=== PATIENT | female | born 1985 | race Caucasian/White ===

== ENCOUNTER → 2021-04-21 | Outpatient (CLI) | payer MEDICAID ==
[~2021-04-21] MED LIST: PREN-88 PO
== END | disposition home or self-care (01) ==
LOC: RAD 14:08
PROVIDERS: ATTEND Obstetrics & Gynecology Maternal & Fetal Medicine
DX: Z03.89 Encounter for observation for other suspected diseases and conditions ruled out (principal)
CPT/HCPCS: 71046

== ENCOUNTER 2021-07-15 04:08 | Inpatient (IN) | payer MEDICAID ==
[~2021-07-15] VITALS: Ht 152.4 cm; Wt 99.8 kg
[2021-07-15] MEDS ORDERED: DEXT 5%/LACTATED RINGERS 1,000 ML IV SCH (05:15)
[2021-07-15 05:50] LABS: CLARITY URINE CLOUDY (CLEAR); COLOR URINE YELLOW (YELLOW); KETONES URINE NEGATIVE (NEGATIVE); LEUKOCYTE ESTERASE URINE 1+ (NEGATIVE); NITRITE URINE NEGATIVE (NEGATIVE); OCCULT BLOOD URINE NEGATIVE (NEGATIVE); PROTEIN URINE NEGATIVE (NEGATIVE); SPECIFIC GRAVITY URINE 1.017 (1.005-1.030); UROBILINOGEN URINE 0.2 E.U./dL (0.2-1.0)
[2021-07-15] MEDS ORDERED: LIDOCAINE HCL 1% 20ML VIAL (Pyxis) INJ INFIL SCH (06:30)
[2021-07-15] MEDS ORDERED: CARBOPROST TROMETHAMINE 250 MCG/ML AMPUL IM PRN (06:30)
[2021-07-15] MEDS ORDERED: NALOXONE HCL 0.4 MG/ML 1ML VIAL IM PRN (06:30)
[2021-07-15] MEDS ORDERED: METHYLERGONOVINE MALEATE 0.2 MG/ML IM PRN (06:30)
[2021-07-15] MEDS ORDERED: LACTATED RINGERS 1,000 ML IV SCH (06:30)
[2021-07-15] MEDS ORDERED: DEXT 5%/LR + PITOCIN 20UNITS/L 1,000 ML IV SCH ×2 (06:30→08:00)
[2021-07-15] MEDS ORDERED: BETAMETHASONE ACET/BETAMET 30 MG/5 ML VIAL IM ONE (06:30)
[2021-07-15] MEDS ORDERED: BUTORPHANOL TARTRATE 2 MG/ML VIAL IV PRN (06:30)
[2021-07-15] MEDS ORDERED: AMPICILLIN 2GM in NS 100ML 100 ML IV SCH (07:00)
[2021-07-15] MEDS ORDERED: PENICILLIN G POTASSIUM 5 MMU in DEXT 5% WATER 100 ML IV SCH (07:00)
[2021-07-15] MEDS ORDERED: RHO(D) IMMUNE GLOBULIN 300 MCG/SYR IM PRN (08:00)
[2021-07-15] MEDS ORDERED: OXYCODONE HCL/ACETAMINOPHEN 5/325MG TABLET PO PRN (08:00)
[2021-07-15] MEDS ORDERED: IBUPROFEN 400MG TABLET PO PRN (08:00)
[2021-07-15] MEDS ORDERED: BENZOCAINE/LANOLIN/ALOE VERA SPRAY TOP PRN (08:00)
[2021-07-15] MEDS ORDERED: NALOXONE HCL 0.4MG/ML VIAL IV PRN (08:15)
[2021-07-15 08:32] LABS: BASOPHILS % 0.2 % (0.0-2.0); EOSINOPHILS % 0.1 % (0.0-5.0); HEMATOCRIT. 31.5 % (36.0-48.0); HEMOGLOBIN. 10.3 g/dL (12.0-16.0); LYMPHOCYTES % 9.2 % (20.0-50.0); MEAN CORPUSCULAR HEMOGLOBIN 28.5 pg (28.0-32.0); MEAN CORPUSCULAR VOLUME 87.1 fL (81.0-99.0); MEAN PLATELET VOLUME 9.6 fl (7.4-10.4); NEUTROPHILS % 88.5 % (40.0-76.0); PLATELET 240 x1000/uL (130-400); RED BLOOD CELL COUNT 3.62 mill/uL (4.2-5.4); RED CELL DISTRIBUTION WIDTH 14.1 % (11.6-14.6)
[2021-07-15 08:33] LABS: CHLORIDE 106 mEq/L (98-107)
[2021-07-15 08:55] LABS: *AMPHETAMINES SCREEN URINE NEGATIVE (NEGATIVE); *BARBITURATES SCREEN URINE NEGATIVE (NEGATIVE); *BENZODIAZEPINES SCREEN URINE NEGATIVE (NEGATIVE); *COCAINE SCREEN URINE NEGATIVE (NEGATIVE); CANNABINOID URINE SCREEN NEGATIVE (NEGATIVE); METHADONE URINE SCREEN NEGATIVE (NEGATIVE); OPIATES URINE SCREEN NEGATIVE (NEGATIVE); PHENCYCLIDINE URINE SCREEN NEGATIVE (NEGATIVE)
[2021-07-15] MEDS ORDERED: PRENATAL VIT/FE FUMARATE/FA TABLET PO SCH (09:00)
[2021-07-15 09:30] VITALS: BP 108/63
[2021-07-15 10:30] VITALS: BP 100/53
[2021-07-15 10:37] LABS: INR 0.9; PARTIAL THROMBOPLASTIN TIME 27.3 sec (23.4-31.0); PROTHROMBIN TIME 10.2 sec (9.6-11.0)
[2021-07-15] MEDS ORDERED: PENICILLIN G POTASSIUM 2.5 MMU in DEXTROSE 5% WATER 50 ML IV SCH (11:00)
[2021-07-15 11:55] LABS: HEPATITIS B SURFACE ANTIGEN NEGATIVE
[2021-07-15] MEDS ORDERED: AMPICILLIN 1,000 MG in SODIUM CHLORIDE 0.9% 50 ML IV SCH (13:00)
[2021-07-15 16:00] VITALS: BP 103/46
[2021-07-15 20:00] VITALS: BP 108/54
[2021-07-15] MEDS: IBUPROFEN 800MG TABLET PO PRN (20:50)
[2021-07-16 04:00] VITALS: BP 102/64
[2021-07-16] MEDS ORDERED: PREN1TAB23 MT (04:58)
[2021-07-16] MEDS ORDERED: IBUP-2029 MT (04:58)
[2021-07-16] MEDS ORDERED: FERR325T6 MT (04:58)
[2021-07-16] MEDS ORDERED: FERROUS SULFATE 325MG TABLET PO SCH (07:30)
[2021-07-16 07:31] LABS: BASOPHILS % 0.3 % (0.0-2.0); EOSINOPHILS % 0.1 % (0.0-5.0); HEMOGLOBIN. 8.5 g/dL (12.0-16.0); MEAN CORPUSCULAR VOLUME 84.9 fL (81.0-99.0); MEAN PLATELET VOLUME 9.2 fl (7.4-10.4); MONOCYTES % 5.2 % (2.0-8.0); NEUTROPHILS % 77.4 % (40.0-76.0); PLATELET 233 x1000/uL (130-400); RED BLOOD CELL COUNT 2.94 mill/uL (4.2-5.4); RED CELL DISTRIBUTION WIDTH 13.7 % (11.6-14.6)
[2021-07-16 07:51] VITALS: BP 103/58
[2021-07-16 09:34] VITALS: BP 103/58
[2021-07-16] MEDS: IBUPROFEN 800MG TABLET PO PRN (09:34)
== END 2021-07-16 08:05 | disposition home or self-care (01) | DRG 560 ==
LOC: 8 EST LDRP 04:08 → OBSVTOIN 04:08 → 8EST 09:56
PROVIDERS: ADMIT Obstetrics & Gynecology; ATTEND Obstetrics & Gynecology
PROC: 10E0XZZ Delivery of Products of Conception, External Approach (ICD-10-PCS; principal; 2021-07-15)
PROC: 10907ZC Drainage of Amniotic Fluid, Therapeutic from Products of Conception, Via Natural or Artificial Opening (ICD-10-PCS; 2021-07-15)
PROC: 0KQM0ZZ Repair Perineum Muscle, Open Approach (ICD-10-PCS; 2021-07-15)
DX: O60.14X0 Preterm labor third trimester with preterm delivery third trimester, not applicable or unspecified (principal); Z37.0 Single live birth; O69.1XX0 Labor and delivery complicated by cord around neck, with compression, not applicable or unspecified; Z3A.34 34 weeks gestation of pregnancy; O70.1 Second degree perineal laceration during delivery; Z20.822 Contact with and (suspected) exposure to COVID-19
CPT/HCPCS: 36415; 76805; 76818; 80053; 80305; 81003; 84550; 85025; 85384; 86592; 86703; 86762; 86850; 86900; 87340; 87426; 99281; J0290; J0595; J0702; J2540; J2590; J3490; J7040; J7060

== ENCOUNTER 2021-08-03 22:32 | Emergency (ER) | payer MEDICAID ==
[~2021-08-03] VITALS: Ht 152.4 cm; Wt 96.0 kg
[~2021-08-03 22:32] MED LIST changes: +FERR325T6 MT; +IBUP-2029 MT; -PREN-88 PO; +PREN1TAB23 MT
[2021-08-03 23:08] VITALS: BP 142/80
[2021-08-03] MEDS ORDERED: ACETAMINOPHEN 325MG TABLET PO ONE (23:45)
[2021-08-04] MEDS ORDERED: ACET-2708 MT (00:08)
[2021-08-04] MEDS ORDERED: DICL500C MT (00:08)
== END 2021-08-04 02:25 | disposition home or self-care (01) ==
LOC: ER 22:32
DX: N61.1 Abscess of the breast and nipple (principal); Z79.899 Other long term (current) drug therapy
CPT/HCPCS: 76641; 99284